=== PATIENT | male | born 1980 | race Caucasian/White ===

== ENCOUNTER 2017-08-04 19:32 | Emergency (ER) | payer MEDICAID ==
[~2017-08-04 19:32] MED LIST: CARI350T PO; IBUP-1985 PO; KEP500T PO
[2017-08-04] MEDS ORDERED: HYDR-3965 PO (20:27)
[2017-08-04 20:58] VITALS: BP 149/95
[2017-08-04] MEDS ORDERED: HYDROcodone/acetaminophen 5mg/325mg tablet PO ONE (21:05)
== END 2017-08-04 21:10 | disposition home or self-care (01) ==
LOC: ER 19:32
DX: M25.511 Pain in right shoulder (principal); G89.29 Other chronic pain; Z98.890 Other specified postprocedural states; Z88.0 Allergy status to penicillin; Z88.1 Allergy status to other antibiotic agents; Z79.899 Other long term (current) drug therapy; W13.2XXA Fall from, out of or through roof, initial encounter; Y93.89 Activity, other specified; Y92.89 Other specified places as the place of occurrence of the external cause; Y99.9 Unspecified external cause status
CPT/HCPCS: 29125; 73030; 73110; 99284; A4565; A6449

== ENCOUNTER 2017-09-06 21:56 | Emergency (ER) | payer MEDICAID ==
[~2017-09-06] VITALS: Ht 182.9 cm; Wt 86.0 kg
[~2017-09-06 21:56] MED LIST changes: +SULF1TAB49 PO
[2017-09-06 21:57] VITALS: BP 132/82
[2017-09-06] MEDS ORDERED: fentaNYL/PF 50MCG/1 ML 2ML syringe IV ONE (22:20)
[2017-09-06 22:54] LABS: BASOPHILS % (AUTO) 0.2 % (0-1); EOSINOPHILS # (AUTO) 0.1 X10'3 (0-0.9); EOSINOPHILS % (AUTO) 0.6 % (0-6); HEMATOCRIT 40.2 % (42.0-52.0); HEMOGLOBIN 13.8 g/dl (14.0-17.9); LYMPHOCYTES # (AUTO) 2.8 X10'3 (1.1-4.8); LYMPHOCYTES % (AUTO) 28.1 % (21-51); MEAN CORPUSCULAR HEMOGLOBIN 31.6 PG (27.0-31.0); MEAN CORPUSCULAR HGB CONC 34.2 % (33.0-36.5); MEAN CORPUSCULAR VOLUME 92.2 FL (78-98); MEAN PLATELET VOLUME 9.4 FL (7.4-10.4); MONOCYTES # (AUTO) 1.7 X10'3 (0-0.9); MONOCYTES % (AUTO) 16.8 % (2-12); NEUTROPHILS # (AUTO) 5.4 X10'3 (1.8-7.7); NEUTROPHILS % (AUTO) 54.3 % (42-75); PLATELET COUNT 242 X10'3 (140-440); RED BLOOD COUNT 4.36 X10'6 (4.70-6.10)
[2017-09-06 23:05] LABS: INR 0.9 INR; PARTIAL THROMBOPLASTIN TIME 28 SECONDS (22-32); PROTHROMBIN TIME 9.6 SECONDS (9.0-12.0)
[2017-09-06 23:08] LABS: ALANINE AMINOTRANSFERASE 93 U/L (12-78); ALBUMIN 3.8 G/DL (3.4-5.0); ALBUMIN/GLOBULIN RATIO 0.8 (1.1-1.5); ALKALINE PHOSPHATASE 80 IU/L (46-116); ANION GAP 9 (8-16); ASPARTATE AMINO TRANSFERASE 70 U/L (10-37); BILIRUBIN,TOTAL 0.7 MG/DL (0.1-1.0); BLOOD UREA NITROGEN 5 MG/DL (7-18); BUN/CREATININE RATIO 6.5 (5.4-32.0); CALCIUM 8.6 MG/DL (8.5-10.1); CHLORIDE 101 MMOL/L (99-107); CREATININE 0.77 MG/DL (0.60-1.10); GLUCOSE 97 MG/DL (70-104); POTASSIUM 3.6 MMOL/L (3.5-5.1); SODIUM 136 MMOL/L (135-145); TOTAL CARBON DIOXIDE 26.5 MMOL/L (24-32); TOTAL PROTEIN 8.6 G/DL (6.4-8.2); eGFR > 90 ML/MIN
[2017-09-06] MEDS ORDERED: HYDR-565 PO (23:30)
== END 2017-09-07 01:18 | disposition home or self-care (01) ==
LOC: ER 21:56
DX: M79.641 Pain in right hand (principal); Z98.890 Other specified postprocedural states; F31.9 Bipolar disorder, unspecified; Z88.0 Allergy status to penicillin; Z88.5 Allergy status to narcotic agent; Z88.1 Allergy status to other antibiotic agents; Z79.899 Other long term (current) drug therapy
CPT/HCPCS: 29125; 36415; 80053; 83605; 84145; 85025; 85610; 85730; 87040; 96374; 99284; J3010

== ENCOUNTER 2017-09-11 05:26 | Emergency (ER) | payer MEDICAID ==
[~2017-09-11] VITALS: Ht 182.9 cm; Wt 84.1 kg
[~2017-09-11 05:26] MED LIST changes: +HYDR-565 PO
[2017-09-11 05:37] VITALS: BP 133/87
== END 2017-09-11 09:25 | disposition home or self-care (01) ==
LOC: ER 05:27
DX: Z48.01 Encounter for change or removal of surgical wound dressing (principal); G89.29 Other chronic pain; Z98.890 Other specified postprocedural states; Z88.0 Allergy status to penicillin; Z88.1 Allergy status to other antibiotic agents; Z88.5 Allergy status to narcotic agent; Z79.899 Other long term (current) drug therapy
CPT/HCPCS: 99284; A6222; A6446; A6449

== ENCOUNTER 2017-09-17 09:32 | Outpatient (CLI) | payer MEDICAID ==
[~2017-09-17 09:32] MED LIST changes: -SULF1TAB49 PO
[2017-09-17] MEDS ORDERED: GABA300C PO (10:24)
== END 2017-09-17 11:10 | disposition home or self-care (01) ==
LOC: WOUND CARE 09:32
PROVIDERS: ATTEND Surgery
DX: T81.89XA Other complications of procedures, not elsewhere classified, initial encounter (principal); L98.492 Non-pressure chronic ulcer of skin of other sites with fat layer exposed; G89.29 Other chronic pain; F31.9 Bipolar disorder, unspecified; F17.200 Nicotine dependence, unspecified, uncomplicated; Z79.899 Other long term (current) drug therapy; Z98.890 Other specified postprocedural states; Y83.8 Other surgical procedures as the cause of abnormal reaction of the patient, or of later complication, without mention of misadventure at the time of the procedure
CPT/HCPCS: 99215; A4649; A6222; A6446

== ENCOUNTER 2017-10-21 10:34 | Day surgery (SDC) | payer MEDICAID ==
[~2017-10-21 10:34] MED LIST changes: -CARI350T PO; +GABA300C PO; -HYDR-565 PO; -IBUP-1985 PO; -KEP500T PO
== END 2017-10-21 11:44 | disposition home or self-care (01) ==
LOC: WOUND CARE 10:34
PROVIDERS: ATTEND Surgery
DX: T81.89XD Other complications of procedures, not elsewhere classified, subsequent encounter (principal); L98.492 Non-pressure chronic ulcer of skin of other sites with fat layer exposed; G89.29 Other chronic pain; F31.9 Bipolar disorder, unspecified; F17.200 Nicotine dependence, unspecified, uncomplicated; Z79.899 Other long term (current) drug therapy; Z98.890 Other specified postprocedural states; Y83.8 Other surgical procedures as the cause of abnormal reaction of the patient, or of later complication, without mention of misadventure at the time of the procedure
CPT/HCPCS: 97597; A6021; A6206

== ENCOUNTER 2017-10-28 10:30 | Outpatient (CLI) | payer MEDICAID ==
[2017-10-28] MEDS ORDERED: LIDOcaine/PRILOcaine 5gm cream TP ONE (11:53)
== END 2017-10-28 12:30 | disposition left against medical advice (07) ==
LOC: EDSTATUS 10:30 → WOUND CARE 10:30
PROVIDERS: ATTEND Surgery
DX: T81.89XD Other complications of procedures, not elsewhere classified, subsequent encounter (principal); L98.492 Non-pressure chronic ulcer of skin of other sites with fat layer exposed; G89.29 Other chronic pain; F31.9 Bipolar disorder, unspecified; F17.200 Nicotine dependence, unspecified, uncomplicated; Z79.899 Other long term (current) drug therapy; Z98.890 Other specified postprocedural states; Y83.8 Other surgical procedures as the cause of abnormal reaction of the patient, or of later complication, without mention of misadventure at the time of the procedure
CPT/HCPCS: 99211

== ENCOUNTER 2017-10-30 08:25 | Day surgery (SDC) | payer MEDICAID ==
[2017-10-30] MEDS ORDERED: LIDOcaine/PRILOcaine 5gm cream TP ONE (09:42)
[2017-10-30] MEDS ORDERED: ACET650S22 (14:43)
[2017-10-30] MEDS ORDERED: IBUP-1985 PO (14:43)
== END 2017-10-30 10:25 | disposition home or self-care (01) ==
LOC: WOUND CARE 08:25
PROVIDERS: ATTEND Surgery
DX: T81.89XD Other complications of procedures, not elsewhere classified, subsequent encounter (principal); L98.492 Non-pressure chronic ulcer of skin of other sites with fat layer exposed; G89.29 Other chronic pain; F31.9 Bipolar disorder, unspecified; F17.200 Nicotine dependence, unspecified, uncomplicated; Z79.899 Other long term (current) drug therapy; Z98.890 Other specified postprocedural states; Y83.8 Other surgical procedures as the cause of abnormal reaction of the patient, or of later complication, without mention of misadventure at the time of the procedure
CPT/HCPCS: 97597; A6021; A6212; A6222

== ENCOUNTER 2018-03-03 17:31 | Emergency (ER) | payer MEDICAID ==
[~2018-03-03 17:31] MED LIST changes: +ACET650S22; +IBUP-1985 PO
--- NOTE | 2018-03-03 18:03 | NUR ---
PT NIL X3, BAR HOST/HOSTESS NOTIFIED, NO FURTHER ACTION
== END 2018-03-03 18:03 | disposition left against medical advice (07) ==
LOC: ER 17:31
DX: R10.30 Lower abdominal pain, unspecified (principal); Z53.21 Procedure and treatment not carried out due to patient leaving prior to being seen by health care provider

== ENCOUNTER 2018-06-02 18:07 | Emergency (ER) | payer MEDICAID ==
[~2018-06-02] VITALS: Ht 182.9 cm; Wt 96.1 kg
[2018-06-02 18:25] VITALS: BP 140/104
== END 2018-06-02 19:17 | disposition home or self-care (01) ==
LOC: ER 18:08
DX: M79.642 Pain in left hand (principal); G89.29 Other chronic pain; Z98.890 Other specified postprocedural states; Z88.0 Allergy status to penicillin; Z88.1 Allergy status to other antibiotic agents; Z88.5 Allergy status to narcotic agent
CPT/HCPCS: 99281; 99283

== ENCOUNTER → 2018-07-21 | Outpatient (CLI) | payer MEDICAID ==
[~2018-07-21] MED LIST changes: +AMOX200S9 PO; +ENOX40SY7 SUBCUT; +METH500T6 PO; +PRAZ5CAP2 PO; +nystatin/triamcinolone cream 15gm TP ONE
--- NOTE | 2018-07-21 15:10 | NUR ---
Patient ambulated independently from [facility] [place] and was admitted to outpatient wound care for return visit with physician. Dressing removed and wound cleansed. Patient assessed for changes in conditions, medications and medical history. Dr. Pelaez at bedside accompanied by RN. Wound assessed and no debridement was done. Plan of care discussed with patient. Dressings placed per MD orders. Patient instructed on the signs and symptoms of infection and to call the Wound Center if any occur or to go to the ED if we are closed: Increased pain in wound Increase in drainage from the wound Redness in the skin surrounding the wound Bleeding from the wound Temperature of 101 or greater Patient instructed that the weight of their body puts a large amount of pressure on their wounds. This pressure keeps the new tissue from growing and inhibits new blood vessels from forming. Explained that, if they continue to bear weight on a body part that has a wound, the time it takes to heal the wound increases, the wound may get worse or the wound may not heal at all. Patient verbalized understanding of all discharge instructions and plan of care and ambulated independently out to [facility] [place] in stable condition with no sign or symptom of distress at time of discharge. Addendum: 07/21/18 at 1514 by Fide Snyder RN Amended: Links added.
== END | disposition home or self-care (01) ==
LOC: WOUND CARE 08:52 → EDSTATUS 09:30
PROVIDERS: ATTEND Surgery
DX: T81.89XD Other complications of procedures, not elsewhere classified, subsequent encounter (principal); L98.491 Non-pressure chronic ulcer of skin of other sites limited to breakdown of skin; G89.29 Other chronic pain; F31.9 Bipolar disorder, unspecified; F17.200 Nicotine dependence, unspecified, uncomplicated; Z79.899 Other long term (current) drug therapy; Z98.890 Other specified postprocedural states; Y83.8 Other surgical procedures as the cause of abnormal reaction of the patient, or of later complication, without mention of misadventure at the time of the procedure
CPT/HCPCS: A6213; A6243; G0463

== ENCOUNTER 2018-08-16 00:33 | Emergency (ER) | payer MEDICAID ==
[~2018-08-16] VITALS: Ht 182.9 cm; Wt 98.2 kg
[~2018-08-16 00:33] MED LIST changes: +CEPH500C5 PO; -nystatin/triamcinolone cream 15gm TP ONE
[2018-08-16 01:30] VITALS: BP 142/95
--- NOTE | 2018-08-16 01:41 | NUR ---
Discussed pt's pain and left leg spasms with HORTENCIA Javier; new order received for Baclofen 10mg po.
--- NOTE | 2018-08-16 01:42 | NUR ---
ice applied to left hip
[2018-08-16] MEDS ORDERED: baclofen 10mg tablet PO PRN (01:45)
[2018-08-16] MEDS ORDERED: ketorolac trometh inj. 60 MG/2 ML VIAL IM ONE (02:10)
[2018-08-16] MEDS ORDERED: HYDROcodone/acetaminophen 10/325mg tab PO ONE (02:10)
[2018-08-16] MEDS ORDERED: HYDR-4353 PO (02:47)
--- NOTE | 2018-08-16 02:57 | NUR ---
CALLED ALYSSA POTTER FOR RIDE HOME AT 02:56
== END 2018-08-16 03:00 | disposition home or self-care (01) ==
LOC: ER 00:33
DX: M25.552 Pain in left hip (principal); G89.29 Other chronic pain; F12.90 Cannabis use, unspecified, uncomplicated; F17.200 Nicotine dependence, unspecified, uncomplicated; Z86.69 Personal history of other diseases of the nervous system and sense organs; Z98.890 Other specified postprocedural states; Z88.0 Allergy status to penicillin; Z88.1 Allergy status to other antibiotic agents; Z88.5 Allergy status to narcotic agent; Z79.2 Long term (current) use of antibiotics; Z79.899 Other long term (current) drug therapy
CPT/HCPCS: 73502; 96372; 99284; J1885

== ENCOUNTER 2019-08-01 10:24 | Emergency (ER) | payer MEDICAID ==
[~2019-08-01] VITALS: Ht 182.9 cm; Wt 102.3 kg
[~2019-08-01 10:24] MED LIST changes: -CEPH500C5 PO
[2019-08-01] MEDS ORDERED: LIDOcaine 1% W/epiNEPHrine 1:200,000 10ml vial IJ ONE (10:50)
[2019-08-01 12:07] VITALS: BP 174/116
== END 2019-08-01 12:09 | disposition home or self-care (01) ==
LOC: ER 10:25
DX: S61.211A Laceration without foreign body of left index finger without damage to nail, initial encounter (principal); R60.9 Edema, unspecified; M25.042 Hemarthrosis, left hand; G89.29 Other chronic pain; F31.9 Bipolar disorder, unspecified; F12.90 Cannabis use, unspecified, uncomplicated; Z86.69 Personal history of other diseases of the nervous system and sense organs; Z98.890 Other specified postprocedural states; Z72.89 Other problems related to lifestyle; Z88.1 Allergy status to other antibiotic agents; Z88.5 Allergy status to narcotic agent; Z88.0 Allergy status to penicillin; Z79.2 Long term (current) use of antibiotics; Z79.899 Other long term (current) drug therapy; W45.8XXA Other foreign body or object entering through skin, initial encounter; Y93.89 Activity, other specified; Y92.89 Other specified places as the place of occurrence of the external cause; Y99.8 Other external cause status
CPT/HCPCS: 12002; 99282

== ENCOUNTER 2019-08-12 07:22 | Emergency (ER) | payer MEDICAID ==
[~2019-08-12] VITALS: Ht 182.9 cm; Wt 102.3 kg
--- NOTE | 2019-08-12 07:57 | NUR ---
swab of laceration to left index finger taken to lab.
[2019-08-12] MEDS ORDERED: CLIN-97 PO (08:35)
[2019-08-12] MEDS ORDERED: clindamycin 600mg/D5W 50ml 50 ML IV ONE (08:35)
[2019-08-12 08:37] VITALS: BP 162/109
== END 2019-08-12 09:20 | disposition home or self-care (01) ==
LOC: ER 07:23
DX: S61.211D Laceration without foreign body of left index finger without damage to nail, subsequent encounter (principal); L03.012 Cellulitis of left finger; Z48.02 Encounter for removal of sutures; G89.29 Other chronic pain; F31.9 Bipolar disorder, unspecified; F17.200 Nicotine dependence, unspecified, uncomplicated; F12.90 Cannabis use, unspecified, uncomplicated; Z86.69 Personal history of other diseases of the nervous system and sense organs; Z98.890 Other specified postprocedural states; Z72.89 Other problems related to lifestyle; Z88.1 Allergy status to other antibiotic agents; Z88.5 Allergy status to narcotic agent; Z88.0 Allergy status to penicillin; Z79.2 Long term (current) use of antibiotics; Z79.899 Other long term (current) drug therapy; W26.0XXD Contact with knife, subsequent encounter
CPT/HCPCS: 87070; 87077; 87186; 96365; 99284; J3490

== ENCOUNTER 2019-08-28 07:08 | Emergency (ER) | payer MEDICAID ==
[~2019-08-28] VITALS: Ht 185.4 cm; Wt 91.0 kg
[~2019-08-28 07:08] MED LIST changes: +CLIN-97 PO
[2019-08-28 07:12] VITALS: BP 143/108
[2019-08-28] MEDS ORDERED: ketorolac trometh. 30mg/ml inj. IM ONE (07:35)
== END 2019-08-28 08:37 | disposition home or self-care (01) ==
LOC: ER 07:08
DX: S29.012A Strain of muscle and tendon of back wall of thorax, initial encounter (principal); G89.29 Other chronic pain; F31.9 Bipolar disorder, unspecified; F12.90 Cannabis use, unspecified, uncomplicated; Z86.69 Personal history of other diseases of the nervous system and sense organs; Z98.890 Other specified postprocedural states; Z88.0 Allergy status to penicillin; Z88.5 Allergy status to narcotic agent; Z79.2 Long term (current) use of antibiotics; Z79.899 Other long term (current) drug therapy; V19.9XXA Pedal cyclist (driver) (passenger) injured in unspecified traffic accident, initial encounter; Y93.89 Activity, other specified; Y92.89 Other specified places as the place of occurrence of the external cause; Y99.8 Other external cause status
CPT/HCPCS: 71046; 96372; 99283; J1885

== ENCOUNTER 2020-02-03 09:48 | Emergency (ER) | payer MEDICAID ==
[~2020-02-03] VITALS: Ht 182.9 cm; Wt 102.9 kg
[2020-02-03 10:31] VITALS: BP 129/90
== END 2020-02-03 11:33 | disposition left against medical advice (07) ==
LOC: ER 09:49
DX: R51.9 Headache, unspecified (principal); Z53.21 Procedure and treatment not carried out due to patient leaving prior to being seen by health care provider

== ENCOUNTER 2020-03-22 05:01 | Emergency (ER) | payer MEDICAID ==
[~2020-03-22] VITALS: Ht 182.9 cm; Wt 102.3 kg
[2020-03-22] MEDS ORDERED: morphine 10mg/ml inj. IV ONE (05:40)
[2020-03-22] MEDS ORDERED: iohexol 300mg/ml 100ml inj. ONE (06:14)
[2020-03-22 06:21] LABS: EOSINOPHILS # (AUTO) 0.1 X10'3 (0-0.9); MEAN PLATELET VOLUME 8.7 FL (7.4-10.4); WHITE BLOOD COUNT 5.4 X10'3 (4.5-11.0)
[2020-03-22 06:23] LABS: BASOPHILS % (AUTO) 0.7 % (0-1); EOSINOPHILS % (AUTO) 1.8 % (0-6); HEMATOCRIT 45.7 % (42.0-52.0); HEMOGLOBIN 15.1 g/dl (14.0-17.9); LYMPHOCYTES # (AUTO) 1.5 X10'3 (1.1-4.8); LYMPHOCYTES % (AUTO) 28.1 % (21-51); MEAN CORPUSCULAR HEMOGLOBIN 31.6 PG (27.0-31.0); MEAN CORPUSCULAR HGB CONC 33.1 g/dL (33.0-36.5); MEAN CORPUSCULAR VOLUME 95.3 FL (78-98); MONOCYTES % (AUTO) 18.2 % (2-12); NEUTROPHILS # (AUTO) 2.8 X10'3 (1.8-7.7); NEUTROPHILS % (AUTO) 51.2 % (42-75); PLATELET COUNT 200 X10'3 (140-440); RED BLOOD COUNT 4.79 X10'6 (4.70-6.10)
[2020-03-22 06:45] LABS: ALANINE AMINOTRANSFERASE 92 U/L (12-78); ALBUMIN 4.3 G/DL (3.4-5.0); ALBUMIN/GLOBULIN RATIO 0.9 (1.1-1.5); ALKALINE PHOSPHATASE 83 IU/L (46-116); ANION GAP 12 (8-16); ASPARTATE AMINO TRANSFERASE 72 U/L (10-37); BILIRUBIN,TOTAL 0.5 MG/DL (0.1-1.0); BLOOD UREA NITROGEN 8 MG/DL (7-18); BUN/CREATININE RATIO 10.5 (5.4-32.0); CHLORIDE 102 MMOL/L (99-107); CREATININE 0.76 MG/DL (0.60-1.10); GLUCOSE 99 MG/DL (70-104); POTASSIUM 4.2 MMOL/L (3.5-5.1); SODIUM 140 MMOL/L (135-145); TOTAL PROTEIN 8.9 G/DL (6.4-8.2); eGFR > 90 ML/MIN
[2020-03-22 06:49] LABS: CALCIUM 8.1 MG/DL (8.5-10.1)
--- NOTE | 2020-03-22 06:52 | NUR ---
PT BEING TAKEN TO CT.
[2020-03-22 07:20] VITALS: BP 147/102
[2020-03-22 07:24] LABS: PLATELET ESTIMATE NORMAL; TOTAL CELLS COUNTED 100
[2020-03-22] MEDS ORDERED: morphine 4 MG/ML inj SYRINge IV ONE ×2 (09:35→10:00)
[2020-03-22] MEDS ORDERED: HYDR-3965 PO (09:59)
[2020-03-22] MEDS ORDERED: NAPR250T4 PO (09:59)
[2020-03-22] MEDS ORDERED: ketorolac trometh. 30mg/ml inj. IV ONE (10:00)
--- NOTE | 2020-03-22 10:35 | NUR ---
IS INSTRUCTION GIVEN TO PT, PT DEMONSTRATED CORRECT TECHNIQUE
== END 2020-03-22 10:44 | disposition home or self-care (01) ==
LOC: ER 05:02
DX: S22.32XA Fracture of one rib, left side, initial encounter for closed fracture (principal); M25.522 Pain in left elbow; F12.90 Cannabis use, unspecified, uncomplicated; G89.29 Other chronic pain; Z86.69 Personal history of other diseases of the nervous system and sense organs; Z72.89 Other problems related to lifestyle; Z98.890 Other specified postprocedural states; Z98.818 Other dental procedure status; Z79.2 Long term (current) use of antibiotics; Z88.0 Allergy status to penicillin; Z88.1 Allergy status to other antibiotic agents; Z88.8 Allergy status to other drugs, medicaments and biological substances; Z79.899 Other long term (current) drug therapy; V19.9XXA Pedal cyclist (driver) (passenger) injured in unspecified traffic accident, initial encounter; Y93.89 Activity, other specified; Y92.89 Other specified places as the place of occurrence of the external cause; Y99.8 Other external cause status
CPT/HCPCS: 71045; 71260; 73080; 74177; 80053; 85007; 85025; 85610; 96374; 96375; 96376; 99285; J1885; J2270; Q9967; 99284

== ENCOUNTER 2020-04-02 20:06 | Emergency (ER) | payer MEDICAID ==
[~2020-04-02] VITALS: Ht 182.9 cm; Wt 104.2 kg
[~2020-04-02 20:06] MED LIST changes: +HYDR-3965 PO; +NAPR250T4 PO
[2020-04-02 21:22] LABS: BASOPHILS % (AUTO) 0.9 % (0-1); EOSINOPHILS # (AUTO) 0.1 X10'3 (0-0.9); EOSINOPHILS % (AUTO) 1.4 % (0-6); HEMATOCRIT 46.3 % (42.0-52.0); HEMOGLOBIN 15.5 g/dl (14.0-17.9); LYMPHOCYTES # (AUTO) 1.7 X10'3 (1.1-4.8); LYMPHOCYTES % (AUTO) 33.2 % (21-51); MEAN CORPUSCULAR HEMOGLOBIN 31.7 PG (27.0-31.0); MEAN CORPUSCULAR HGB CONC 33.5 g/dL (33.0-36.5); MEAN CORPUSCULAR VOLUME 94.5 FL (78-98); MEAN PLATELET VOLUME 9.3 FL (7.4-10.4); MONOCYTES # (AUTO) 0.8 X10'3 (0-0.9); MONOCYTES % (AUTO) 14.6 % (2-12); NEUTROPHILS # (AUTO) 2.6 X10'3 (1.8-7.7); NEUTROPHILS % (AUTO) 49.9 % (42-75); PLATELET COUNT 172 X10'3 (140-440); RED CELL DISTRIBUTION WIDTH 13.2 % (11.5-14.5); WHITE BLOOD COUNT 5.1 X10'3 (4.5-11.0)
[2020-04-02 21:34] LABS: ALANINE AMINOTRANSFERASE 238 U/L (12-78); ALBUMIN 4.4 G/DL (3.4-5.0); ALBUMIN/GLOBULIN RATIO 0.9 (1.1-1.5); ALKALINE PHOSPHATASE 108 IU/L (46-116); ANION GAP 12 (8-16); ASPARTATE AMINO TRANSFERASE 236 U/L (10-37); BILIRUBIN,TOTAL 0.6 MG/DL (0.1-1.0); BLOOD UREA NITROGEN 5 MG/DL (7-18); CALCIUM 8.6 MG/DL (8.5-10.1); CHLORIDE 101 MMOL/L (99-107); CREATININE 0.83 MG/DL (0.60-1.10); GLUCOSE 104 MG/DL (70-104); LIPASE 210 U/L (73-393); POTASSIUM 4.1 MMOL/L (3.5-5.1); SODIUM 139 MMOL/L (135-145); TOTAL PROTEIN 9.2 G/DL (6.4-8.2); eGFR > 90 ML/MIN
[2020-04-02] MEDS ORDERED: iohexol 300mg/ml 100ml inj. ONE (22:35)
[2020-04-02] MEDS ORDERED: ondansetron/PF 4mg/2ml inj IV ONE (22:50)
[2020-04-02] MEDS ORDERED: normal saline 1000ML IV soln IVB ONE (23:05)
[2020-04-02] MEDS ORDERED: morphine 4 MG/ML inj SYRINge IV PRN ×2 (23:05)
[2020-04-03 00:15] LABS: CLARITY,URINE CLEAR (Clear); COLOR,URINE YELLOW (Yellow); GLUCOSE, URINE NEGATIVE (Neg); KETONES,URINE NEGATIVE (Neg); LEUKOCYTE ESTERASE ,URINE NEGATIVE (Neg); NITRITES, URINE NEGATIVE (Neg); OCCULT BLOOD,URINE TRACE-INTACT (Neg); PH,URINE 5.5 (4.8-8.0); PROTEIN,URINE NEGATIVE (Neg)
[2020-04-03 00:21] LABS: UA COLLECTION TYPE CLN CATCH MIDSTREAM
[2020-04-03 00:22] LABS: BACTERIA,URINE NONE SEEN /HPF (Neg); RBC,URINE 0-2 /HPF (0-2); SQUAMOUS EPITHELIAL CELL,UR FEW /LPF (FEW); WBC,URINE NONE SEEN /HPF (0-4)
[2020-04-03] MEDS ORDERED: ONDA4TAB6 PO (01:19)
[2020-04-03 01:29] VITALS: BP 138/102
== END 2020-04-03 01:34 | disposition home or self-care (01) ==
LOC: ER 20:07
DX: R10.12 Left upper quadrant pain (principal); R10.9 Unspecified abdominal pain; S22.32XK Fracture of one rib, left side, subsequent encounter for fracture with nonunion; K57.90 Diverticulosis of intestine, part unspecified, without perforation or abscess without bleeding; F12.90 Cannabis use, unspecified, uncomplicated; G89.29 Other chronic pain; Z72.89 Other problems related to lifestyle; Z86.69 Personal history of other diseases of the nervous system and sense organs; Z88.0 Allergy status to penicillin; Z88.1 Allergy status to other antibiotic agents; Z88.8 Allergy status to other drugs, medicaments and biological substances; Z79.2 Long term (current) use of antibiotics; Z79.899 Other long term (current) drug therapy; X58.XXXD Exposure to other specified factors, subsequent encounter
CPT/HCPCS: 36415; 71260; 74177; 80053; 81001; 83690; 85025; 96361; 96374; 96375; 99285; J2270; J2405; J7030; Q9967

== ENCOUNTER 2020-05-28 19:18 | Emergency (ER) | payer MEDICAID ==
[~2020-05-28] VITALS: Ht 182.9 cm; Wt 106.8 kg
[~2020-05-28 19:18] MED LIST changes: -HYDR-3965 PO; +METH-797 PO; -METH500T6 PO; +NAPR-1170 PO; -NAPR250T4 PO; +ONDA4TAB6 PO
[2020-05-28] MEDS ORDERED: LIDOcaine 5% patch TP STA (20:21)
[2020-05-28] MEDS ORDERED: HYDROcodone/acetaminophen 5mg/325mg tablet PO ONE (20:25)
[2020-05-28 20:26] VITALS: BP 148/107
[2020-05-28] MEDS ORDERED: LIDO700A32 TOP (20:29)
== END 2020-05-28 20:41 | disposition home or self-care (01) ==
LOC: ER 19:19
DX: R07.81 Pleurodynia (principal); R05 Cough; R07.89 Other chest pain; G89.29 Other chronic pain; F31.9 Bipolar disorder, unspecified; F17.200 Nicotine dependence, unspecified, uncomplicated; F12.90 Cannabis use, unspecified, uncomplicated; Z98.890 Other specified postprocedural states; Z86.69 Personal history of other diseases of the nervous system and sense organs; Z72.89 Other problems related to lifestyle; Z88.1 Allergy status to other antibiotic agents; Z88.0 Allergy status to penicillin; Z88.5 Allergy status to narcotic agent; Z79.2 Long term (current) use of antibiotics; Z79.899 Other long term (current) drug therapy
CPT/HCPCS: 71046; 99283

== ENCOUNTER 2020-06-30 18:32 | Emergency (ER) | payer MEDICAID ==
[~2020-06-30] VITALS: Ht 182.9 cm; Wt 90.9 kg
[~2020-06-30 18:32] MED LIST changes: +LIDO700A32 TOP
[2020-06-30 18:34] VITALS: BP 160/90
== END 2020-06-30 21:07 | disposition left against medical advice (07) ==
LOC: ER 18:33
DX: R07.81 Pleurodynia (principal); Z53.21 Procedure and treatment not carried out due to patient leaving prior to being seen by health care provider

== ENCOUNTER 2020-09-29 21:31 | Emergency (ER) | payer MEDICAID ==
[~2020-09-29] VITALS: Ht 182.9 cm; Wt 92.0 kg
[2020-09-29] MEDS ORDERED: normal saline 1000ML IV soln IVB ONE (22:20)
[2020-09-29] MEDS ORDERED: LORazepam 2 mg/ml vial IV PRN (22:25)
[2020-09-29] MEDS ORDERED: phenytoin sod ER 100mg capsule PO ONE ×2 (22:25→23:10)
[2020-09-29] MEDS ORDERED: magnesium 2GM in 50ml NS 50 ML IV ONE (22:25)
[2020-09-29] MEDS ORDERED: chlordiazePOXIDE 25mg capsule PO ONE (22:25)
[2020-09-29 22:28] VITALS: BP 172/74
[2020-09-29 22:42] LABS: EOSINOPHILS % (AUTO) 0.6 % (0-6); HEMOGLOBIN 15.1 g/dl (14.0-17.9); LYMPHOCYTES # (AUTO) 0.9 X10'3 (1.1-4.8); MEAN PLATELET VOLUME 9.7 FL (7.4-10.4); PLATELET COUNT 120 X10'3 (140-440)
[2020-09-29 22:43] LABS: BASOPHILS % (AUTO) 0.2 % (0-1); HEMATOCRIT 44.8 % (42.0-52.0); LYMPHOCYTES % (AUTO) 18.5 % (21-51); MEAN CORPUSCULAR HEMOGLOBIN 32.4 PG (27.0-31.0); MEAN CORPUSCULAR HGB CONC 33.8 g/dL (33.0-36.5); MONOCYTES % (AUTO) 20.1 % (2-12); NEUTROPHILS # (AUTO) 2.9 X10'3 (1.8-7.7); NEUTROPHILS % (AUTO) 60.6 % (42-75); RED BLOOD COUNT 4.67 X10'6 (4.70-6.10); RED CELL DISTRIBUTION WIDTH 13.5 % (11.5-14.5); WHITE BLOOD COUNT 4.8 X10'3 (4.5-11.0)
[2020-09-29 22:55] LABS: ALANINE AMINOTRANSFERASE 121 U/L (12-78); ALBUMIN 3.9 G/DL (3.4-5.0); ALBUMIN/GLOBULIN RATIO 0.8 (1.1-1.5); ALKALINE PHOSPHATASE 90 IU/L (46-116); ANION GAP 14 (8-16); ASPARTATE AMINO TRANSFERASE 159 U/L (10-37); BILIRUBIN,TOTAL 1.5 MG/DL (0.1-1.0); BLOOD UREA NITROGEN 13 MG/DL (7-18); BUN/CREATININE RATIO 13.5 (5.4-32.0); CALCIUM 8.8 MG/DL (8.5-10.1); CHLORIDE 94 MMOL/L (99-107); CREATININE 0.96 MG/DL (0.60-1.10); ETHANOL 0.026 GM/DL (0.0-0.010); GLUCOSE 113 MG/DL (70-104); SODIUM 133 MMOL/L (135-145); TOTAL CARBON DIOXIDE 24.8 MMOL/L (24-32); TOTAL PROTEIN 8.6 G/DL (6.4-8.2); eGFR 87 ML/MIN
[2020-09-29 22:58] LABS: POTASSIUM 2.8 MMOL/L (3.5-5.1)
[2020-09-29] MEDS ORDERED: potassium Cl 20 mEq SR tablet PO STA (23:06)
[2020-09-29] MEDS ORDERED: magnesium oxide 400mg tablet PO ONE (23:10)
[2020-09-29 23:38] LABS: LYMPHOCYTES % (MANUAL) 26 % (21-51); NEUTROPHILS % (MANUAL) 64 % (42-75); TOTAL CELLS COUNTED 100
[2020-09-29 23:39] LABS: MONOCYTES % (MANUAL) 10 % (2-12); PLATELET ESTIMATE DECREASED
[2020-09-30] MEDS ORDERED: POTA10TA19 PO (00:13)
[2020-09-30] MEDS ORDERED: PHEN100C4 PO (00:13)
== END 2020-09-30 02:32 | disposition home or self-care (01) ==
LOC: ER 21:31
DX: F10.129 Alcohol abuse with intoxication, unspecified (principal); E87.6 Hypokalemia; G40.909 Epilepsy, unspecified, not intractable, without status epilepticus; R47.81 Slurred speech; G89.29 Other chronic pain; F31.9 Bipolar disorder, unspecified; F12.90 Cannabis use, unspecified, uncomplicated; Z91.14 Patient's other noncompliance with medication regimen; Z86.69 Personal history of other diseases of the nervous system and sense organs; Z98.890 Other specified postprocedural states; Z72.89 Other problems related to lifestyle; Z88.0 Allergy status to penicillin; Z88.5 Allergy status to narcotic agent; Z88.8 Allergy status to other drugs, medicaments and biological substances; Z79.2 Long term (current) use of antibiotics; Z79.899 Other long term (current) drug therapy; Y90.0 Blood alcohol level of less than 20 mg/100 ml
CPT/HCPCS: 36415; 70450; 71045; 80053; 80320; 83735; 85007; 85025; 96365; 96366; 99285; J3475; J7030

== ENCOUNTER 2020-10-17 19:36 | Emergency (ER) | payer MEDICAID ==
[~2020-10-17] VITALS: Ht 182.9 cm; Wt 97.0 kg
[~2020-10-17 19:36] MED LIST changes: +PHEN100C4 PO; +POTA10TA19 PO
--- NOTE | 2020-10-17 21:29 | NUR ---
Patient states he will need a taxi ride home- his address is [address] [place] [address]
[2020-10-17] MEDS ORDERED: metoclopramide 5 mg/ml inj IV ONE (22:45)
[2020-10-17] MEDS ORDERED: diphenhydrAMINE 50 mg/ml inj IV ONE (22:45)
[2020-10-17] MEDS ORDERED: ketorolac tromethamine 15mg/ml inj. IV ONE (22:45)
[2020-10-18 00:21] VITALS: BP 122/91
== END 2020-10-18 00:22 | disposition home or self-care (01) ==
LOC: ER 19:36
DX: R51.9 Headache, unspecified (principal); F31.9 Bipolar disorder, unspecified; F12.10 Cannabis abuse, uncomplicated; G89.29 Other chronic pain; M54.9 Dorsalgia, unspecified; Z88.0 Allergy status to penicillin; Z88.1 Allergy status to other antibiotic agents; Z88.5 Allergy status to narcotic agent; Z79.899 Other long term (current) drug therapy
CPT/HCPCS: 70450; 73070; 96374; 96375; 99284; J1200; J1885; J2765

== ENCOUNTER 2021-02-19 18:47 | Emergency (ER) | payer MEDICAID ==
[~2021-02-19] VITALS: Ht 182.9 cm; Wt 93.2 kg
[~2021-02-19 18:47] MED LIST changes: -POTA10TA19 PO
[2021-02-19 19:03] VITALS: BP 140/107
== END 2021-02-19 21:56 | disposition left against medical advice (07) ==
LOC: ER 18:48
DX: M79.605 Pain in left leg (principal); Z53.21 Procedure and treatment not carried out due to patient leaving prior to being seen by health care provider

== ENCOUNTER 2021-10-14 18:23 | Emergency (ER) | payer MEDICAID ==
[~2021-10-14] VITALS: Ht 182.9 cm; Wt 95.5 kg
[2021-10-14] MEDS ORDERED: IBUP-1986 PO (18:40)
[2021-10-14] MEDS ORDERED: HYDR12.55 PO (18:40)
[2021-10-14] MEDS ORDERED: LISI10TA27 PO (18:40)
[2021-10-14] MEDS ORDERED: normal saline 1000ML IV soln IVB ONE (19:10)
[2021-10-14] MEDS ORDERED: ketorolac trometh. 30mg/ml inj. IV ONE (19:10)
[2021-10-14] MEDS ORDERED: NAPR-56 PO (19:12)
[2021-10-14 20:17] VITALS: BP 146/95
== END 2021-10-14 20:26 | disposition home or self-care (01) ==
LOC: ER 18:24
DX: R07.81 Pleurodynia (principal); M54.2 Cervicalgia; G89.29 Other chronic pain; M54.9 Dorsalgia, unspecified; F31.9 Bipolar disorder, unspecified; F12.10 Cannabis abuse, uncomplicated; Z88.0 Allergy status to penicillin; Z88.1 Allergy status to other antibiotic agents; Z88.5 Allergy status to narcotic agent; Z79.899 Other long term (current) drug therapy; Z79.2 Long term (current) use of antibiotics; Z79.1 Long term (current) use of non-steroidal anti-inflammatories (NSAID); W19.XXXA Unspecified fall, initial encounter; Y93.89 Activity, other specified; Y92.89 Other specified places as the place of occurrence of the external cause; Y99.8 Other external cause status
CPT/HCPCS: 71045; 96361; 96374; 99283; J1885; J7030

== ENCOUNTER 2022-11-07 16:26 | Emergency (ER) | payer MEDICAID ==
[~2022-11-07 16:26] MED LIST changes: -ACET650S22; -AMOX200S9 PO; -CLIN-97 PO; -ENOX40SY7 SUBCUT; +HYDR12.55 PO; -IBUP-1985 PO; +IBUP-1986 PO; -LIDO700A32 TOP; +LISI10TA27 PO; -NAPR-1170 PO; -ONDA4TAB6 PO; -PHEN100C4 PO; -PRAZ5CAP2 PO
== END 2022-11-07 16:42 | disposition left against medical advice (07) ==
LOC: ER 16:27
DX: H92.09 Otalgia, unspecified ear (principal); Z53.21 Procedure and treatment not carried out due to patient leaving prior to being seen by health care provider

== ENCOUNTER 2024-06-23 08:23 | Emergency (ER) | payer MEDICAID ==
[~2024-06-23] VITALS: Ht 182.9 cm; Wt 80.4 kg
[2024-06-23 08:31] VITALS: BP 131/78; PULSE 90; RESP 18; O2SAT 98
[2024-06-23] MEDS ORDERED: LIDOcaine 1% W/epiNEPHrine 1:100,000 20ml vial IJ ONE (09:40)
[2024-06-23 10:32] VITALS: TEMP 97.9
== END 2024-06-23 10:35 | disposition home or self-care (01) ==
LOC: ER 08:24
DX: S61.215D Laceration without foreign body of left ring finger without damage to nail, subsequent encounter (principal); F12.90 Cannabis use, unspecified, uncomplicated; Z88.0 Allergy status to penicillin; Z88.1 Allergy status to other antibiotic agents; Z88.5 Allergy status to narcotic agent; Z88.8 Allergy status to other drugs, medicaments and biological substances; X58.XXXD Exposure to other specified factors, subsequent encounter
CPT/HCPCS: 99281; A6449

== ENCOUNTER 2024-08-19 10:16 | Emergency (ER) | payer MEDICAID ==
[~2024-08-19] VITALS: Ht 182.9 cm; Wt 80.4 kg
[2024-08-19 10:31] VITALS: BP 90/68; PULSE 90; RESP 18; O2SAT 98
--- NOTE | 2024-08-19 10:46 | Physician Documentation ---
History of Present Illness ~ Chief Complaint: Foot pain Stated Complaint: R FOOT PAIN Time Seen by MD: 10:38 Primary Medical Doctor: Delmy Graham [facility] [place] HPI 44-year-old man presenting with a right foot injury and pain He tells me that 2 days ago he was actually getting baptized, and was stepping down into the tub, when he slipped and hit the right foot against the tile. Sin ce that time he has had significant pain in the foot, making it difficult to walk. He has been taking ibuprofen and using ice without relief. Pain is localized at the base of the 2nd through 5th toes, and he also has some pain and swelling extending up to the lateral ankle. He feels like his toes are slightly numb No other associated injuries. Tetanus witin 5 years: Yes Medication Reconciliation Allergies: Coded Allergies: Penicillins (Verified Allergy, Unknown, 06/23/24) amoxicillin (Verified Allergy, Unknown, 06/23/24) codeine (Verified Allergy, Unknown, 06/23/24) erythromycin base (Verified Allergy, Unknown, 06/23/24) Uncoded Allergies: PEANUT BUTTER (Allergy, Mild, 06/02/18) Scheduled Gabapentin (Neurontin), 1 CAP PO Q8H, (Reported) Hydrochlorothiazide (Hydrochlorothiazide), 1 TAB PO DAILY, (Reported) Ibuprofen (Ibuprofen), 1 TAB PO TID, (Reported) Lisinopril (Lisinopril), 1 TAB PO DAILY, (Reported) Methocarbamol (Methocarbamol), Unknown Dose PO Q12H, (Reported) Past Medical History Past Medical History: Seizures, Chronic Back Pain, Bipolar Past Surgical History: orthopedic surgeries, other Other Past Surgical History: Dental Surgical procedures Alcohol Use: Occasionally Drug Use: marijuana Lives with: Family Lives In: Home Occupation: employed Review of Systems Musculoskeletal: Reports: pain, swelling Physical Exam Vital Signs: Temperature: 98.9, Source: Temporal, Heart Rate: 90, Respiratory Rate: 18, BP: 90/68, Pulse Oximetry: 98, Weight: 80.400 Oxygen Flow Rate: 0 Physical Exam General: This is a overall healthy-appearing young man wearing flip-flops Heart: Regular rate and rhythm, normal-appearing peripheral perfusion Lungs: Clear breath sounds bilateral, normal work of breathing, normal oxygen saturation on room air Extremities: Warm and well-perfused Right lower extremity: The patient has swelling and bruising to the forefoot, with focal tenderness to palpation at the base of the 2nd through 5th toes as well as in the lateral mid foot. He also has some mild swelling and tenderness around the lateral right ankle. He reports generalized tingling to all of his toes. Normal capillary refill to the toes. Neuro: Alert and oriented Psychiatric: Calm and cooperative with exam Progress Results/Orders Results/Orders Orders - COLUMBA MOBLEY MD Foot, Complete (3vw Min) (08/19/24 10:34) General Nursing Order (08/19/24 ) Completed Orders - COLUMBA MOBLEY MD Foot, Complete (3vw Min) (08/19/24 10:34) Ibuprofen Tablet (Motrin Tablet) (08/19/24 10:45) Vital Signs 08/19/24 08/19/24 10:31 11:59 Temp 98.9 98.9 Pulse 90 Resp 18 B/P (MAP) 90/68 Pulse Ox 98 O2 Flow Rate 0 EKG/XRAY/CT/US/VASC/MRI Bone/Soft Tissue X-Ray (Ext.) : Additional Comment I personally reviewed the x-ray, and it shows: A 5th phalanx fracture, minimally displaced, no other fracture to the toes or midfoot Medical Decision Making General Diff Dx:Considerations: Include: Contusion, Fracture, Hematoma, Sprain Assessment The patient presents with an isolated foot injury. X-ray shows a 5th phalanx f racture. No other fracture including no mid foot fracture. He was treated with ibuprofen, but he tape, and a postop shoe. He will be discharged with outpatient follow up and symptomatic treatment. Departure Time of Disposition: 11:33 Disposition: 01 HOME / SELF CARE / HOMELESS Impression: Primary Impression: Toe fracture, left Condition: Stable Discharge Instructions: Toe Fracture Referrals: NO PRIMARY CARE PROVIDER (PCP) Education Educated: Patient Educated regarding: diagnosis Signature Scribe Signature: na Attestation: COLUMBA Gupta MD Aug 19, 2024 10:46
[2024-08-19] MEDS: ibuprofen tablet 400 MG TABLET PO ONE (11:04)
--- NOTE | 2024-08-19 11:19 | RADIOLOGY REPORT ---
CLINICAL INDICATION: RT.FOOT PAIN TECHNIQUE: DI FOOT, COMPLETE (3VW MIN) Comparison: None FINDINGS/IMPRESSION: : Mildly displaced fracture of the base of the 5th proximal phalanx
[2024-08-19 11:59] VITALS: TEMP 98.9
== END 2024-08-19 12:01 | disposition home or self-care (01) ==
LOC: ER 10:18
DX: S92.591A Other fracture of right lesser toe(s), initial encounter for closed fracture (principal); F31.9 Bipolar disorder, unspecified; F12.90 Cannabis use, unspecified, uncomplicated; Z88.0 Allergy status to penicillin; Z88.5 Allergy status to narcotic agent; Z88.1 Allergy status to other antibiotic agents; Z79.899 Other long term (current) drug therapy; Z72.89 Other problems related to lifestyle; W18.2XXA Fall in (into) shower or empty bathtub, initial encounter; Y93.89 Activity, other specified; Y92.89 Other specified places as the place of occurrence of the external cause; Y99.8 Other external cause status
CPT/HCPCS: 73630; 99284; L3260

== ENCOUNTER 2025-02-05 10:12 | Outpatient (CLI) | payer MEDICAID ==
[2025-02-05] MEDS ORDERED: iohexol 300mg/ml 100ml inj. ONE (10:23)
--- NOTE | 2025-02-05 14:36 | RADIOLOGY REPORT ---
EXAM: CT CT LOWER EXTREMITY W/ IV CONTRAST INDICATION: LOCALIZED SWELLING, MASS AND LUMP, LEFT LOWER LIMB TECHNIQUE: Axial images of left lower extremity with and without contrast have been obtained along with coronal and sagittal reformatted images. All CT scans at this facility use dose modulation, iterative reconstruction, and/or weight based dosing when appropriate to reduce radiation dose to as low as reasonably achievable. COMPARISON: None FINDINGS: BONES: Screw fixation along with plate screw fixation along the iliac wing to acetabulum. Small amount of marginal heterotopic ossification along the anterior aspect of the anterior superior to inferior iliac spine. MUSCLES: In the left posterior medial superficial subcutaneous adipose tissues of the proximal thigh, 5.4 by 2.7 cm mass versus fluid collection demonstrating 23 Hounsfield unit density. Imaging finding is nonspecific; consider correlation with dedicated ultrasound to differentiate between cystic versus solid nature. Broad differential includes sebaceous versus epidermal inclusion cysts versus soft tissue pleomorphic sarcoma. JOINT SPACES: No joint effusion. OTHER: Mild circumferential bladder wall thickening. Minimal descending and sigmoid colonic diverticulosis. IMPRESSION: 1. In the left posterior medial superficial subcutaneous adipose tissues of the proximal thigh, 5.4 by 2.7 cm mass versus fluid collection demonstrating 23 Hounsfield unit density. 2. Imaging finding is nonspecific; consider correlation with dedicated ultrasound to differentiate between cystic versus solid nature. 3. Broad differential includes sebaceous versus epidermal inclusion cysts versus soft tissue dermal pleomorphic sarcoma (myxoid type). No suspicious abnormal enhancement on postcontrast images.
== END 2025-02-05 23:59 | disposition home or self-care (01) ==
LOC: EDBD → UNMERGE 10:12 → MERGE 10:12 → RAD 10:12
PROVIDERS: ATTEND Family Medicine
DX: R22.42 Localized swelling, mass and lump, left lower limb (principal); N32.89 Other specified disorders of bladder
CPT/HCPCS: 73702; Q9967